=== PATIENT | male | born 1965 | race Caucasian/White ===

== ENCOUNTER 2019-08-16 16:26 | Inpatient (IN) | payer MEDICAID ==
[~2019-08-16] VITALS: Ht 175.3 cm; Wt 95.6 kg
[2019-08-16 17:08] LABS: BASOPHILS % (AUTO) 0.5 % (0.0-2.0); EOSINOPHILS % (AUTO) 2.9 % (1.0-6.0); HEMATOCRIT 30.1 % (41-53); HEMOGLOBIN 9.9 g/dL (13.5-17.5); LYMPHOCYTES # (AUTO) 1.4 K/uL (1.0-4.8); LYMPHOCYTES % (AUTO) 17.3 % (22.0-44.0); MEAN CORPUSCULAR HEMOGLOBIN 30.2 pg (26.0-34.0); MEAN CORPUSCULAR HGB CONC 32.8 G/dL (31.0-37.0); MEAN CORPUSCULAR VOLUME 92 fL (80-100); MONOCYTES # (AUTO) 0.8 K/uL (0.1-1.0); MONOCYTES % (AUTO) 10.3 % (2.0-9.0); NEUTROPHILS # (AUTO) 5.4 K/uL (1.8-7.7); PLATELET COUNT (AUTO) 150 K/uL (150-450); RED BLOOD CELL COUNT(AUTO) 3.27 MIL/uL (4.50-5.90); RED CELL DISTRIBUTION WIDTH 14.5 % (11.5-14.5)
[2019-08-16 17:17] LABS: CALCIUM, TOTAL 8.1 mg/dL (8.8-10.5); CREATININE 1.58 mg/dL (0.60-1.30); POTASSIUM 4.1 mmol/L (3.5-5.1)
[2019-08-16 17:24] LABS: ALBUMIN 3.2 g/dL (3.4-5.0); BILIRUBIN,TOTAL 0.6 mg/dL (0.1-1.0); TOTAL PROTEIN, SERUM 7.4 g/dL (6.4-8.2)
[2019-08-16 17:40] LABS: AMPHET/METH SCREEN,URINE NEGATIVE (NEGATIVE); BARBITURATE SCREEN, URINE NEGATIVE (NEGATIVE); BENZODIAZEPINES SCREEN,URINE POSITIVE (NEGATIVE); CANNABINOID SCREEN,URINE NEGATIVE (NEGATIVE); COCAINE SCREEN,URINE NEGATIVE (NEGATIVE); METHADONE SCREEN, URINE NEGATIVE (NEGATIVE); OPIATE SCREEN,URINE NEGATIVE (NEGATIVE)
[2019-08-16 17:44] LABS: PHENCYCLIDINE SCREEN,URINE NEGATIVE (NEGATIVE)
[2019-08-16] MEDS ORDERED: PROMETHAZINE HCL 25 MG TABLET PO PRN (20:15)
[2019-08-16] MEDS ORDERED: MAG HYDROX/AL HYDROX/SIMETH ES 30 ML SUSPENSION UDCUP PO PRN (20:15)
[2019-08-16] MEDS ORDERED: TUBERCULIN, PURIFIED PROTEIN DERIVATIVE 5 TU/0.1 ML SYRINGE ID ONE (20:15)
[2019-08-16] MEDS ORDERED: GuaiFENesin/D-METHORPHAN [SUGAR-FREE] 200-20MG/10 ML SYRUP UDCUP PO PRN (20:15)
[2019-08-16] MEDS ORDERED: MAGNESIUM HYDROXIDE SUSPENSION 30 ML UDCUP PO PRN (20:15)
[2019-08-16 22:00] VITALS: BP 154/95
[2019-08-16] MEDS: OLANZapine 5 MG RAPDIS TABLET PO SCH (22:00)
[2019-08-16] MEDS: THIAMINE 100 MG TABLET PO SCH (22:00)
[2019-08-16] MEDS: NALTREXONE HCL 50 MG TABLET PO SCH (22:00)
[2019-08-16] MEDS: HydrOXYzine PAMOATE 50 MG CAPSULE PO PRN (22:23)
[2019-08-16 23:02] VITALS: BP 134/80
[2019-08-17] VITALS (13 sets, daily range): BP systolic 130–180; BP diastolic 81–114
[2019-08-17] MEDS: ZOLPIDEM TARTRATE 10 MG TABLET PO PRN (00:46)
[2019-08-17] MEDS: LORazepam 2 MG TABLET PO PRN ×2 (00:46→06:08)
[2019-08-17] MEDS ORDERED: LORazepam 2 MG TABLET PO PRN (07:00)
[2019-08-17 07:36] LABS: BASOPHILS % (AUTO) 0.9 % (0.0-2.0); EOSINOPHILS % (AUTO) 5.2 % (1.0-6.0); HEMATOCRIT 33.6 % (41-53); HEMOGLOBIN 11.3 g/dL (13.5-17.5); LYMPHOCYTES # (AUTO) 1.4 K/uL (1.0-4.8); LYMPHOCYTES % (AUTO) 29.3 % (22.0-44.0); MEAN CORPUSCULAR HEMOGLOBIN 31.1 pg (26.0-34.0); MEAN CORPUSCULAR HGB CONC 33.6 G/dL (31.0-37.0); MEAN CORPUSCULAR VOLUME 93 fL (80-100); MONOCYTES # (AUTO) 0.7 K/uL (0.1-1.0); MONOCYTES % (AUTO) 14.4 % (2.0-9.0); NEUTROPHILS # (AUTO) 2.4 K/uL (1.8-7.7); NEUTROPHILS % (AUTO) 50.2 % (40.0-70.0); PLATELET COUNT (AUTO) 136 K/uL (150-450); RED BLOOD CELL COUNT(AUTO) 3.62 MIL/uL (4.50-5.90); RED CELL DISTRIBUTION WIDTH 14.7 % (11.5-14.5)
[2019-08-17 08:00] LABS: ALBUMIN 3.2 g/dL (3.4-5.0); BILIRUBIN,TOTAL 0.6 mg/dL (0.1-1.0); CALCIUM, TOTAL 8.8 mg/dL (8.8-10.5); CHOL/HDL RATIO 2.4 (4.2-7.3); CREATININE 1.8 mg/dL (0.60-1.30); FREE T4 (FREE THYROXINE) 1.03 ng/dL (0.76-1.46); POTASSIUM 4.2 mmol/L (3.5-5.1); THYROID STIMULATING HORMONE 8.67 uIU/mL (0.36-3.74); TOTAL PROTEIN, SERUM 7.4 g/dL (6.4-8.2)
[2019-08-17 08:19] LABS: HEMOGLOBIN A1C 4.2 % (3.8-5.6)
[2019-08-17] MEDS: LORazepam 2 MG TABLET PO SCH ×4 (08:33→20:54)
[2019-08-17] MEDS: FOLIC ACID 1 MG TABLET PO SCH (08:33)
[2019-08-17] MEDS: MULTIVITAMINS WITH MINERALS, THERAPEUTIC TABLET PO SCH (08:33)
[2019-08-17] MEDS: THIAMINE 100 MG TABLET PO SCH ×2 (08:33→16:16)
[2019-08-17] MEDS: OLANZapine 5 MG RAPDIS TABLET PO SCH (20:54)
[2019-08-17] MEDS: NALTREXONE HCL 50 MG TABLET PO SCH (20:54)
[2019-08-17] MEDS: LOPERAMIDE HCL 2 MG CAPSULE PO PRN (21:03)
[2019-08-18 08:30] VITALS: BP 164/94
[2019-08-18] MEDS: MULTIVITAMINS WITH MINERALS, THERAPEUTIC TABLET PO SCH (09:25)
[2019-08-18] MEDS: FOLIC ACID 1 MG TABLET PO SCH (09:25)
[2019-08-18] MEDS: THIAMINE 100 MG TABLET PO SCH ×2 (09:25→16:53)
[2019-08-18] MEDS: LORazepam 2 MG TABLET PO SCH ×4 (09:26→21:31)
[2019-08-18 11:19] VITALS: BP 164/94
[2019-08-18 19:00] VITALS: BP 153/90
[2019-08-18 21:30] VITALS: BP 151/107
[2019-08-18] MEDS: NALTREXONE HCL 50 MG TABLET PO SCH (21:30)
[2019-08-18] MEDS: OLANZapine 5 MG RAPDIS TABLET PO SCH (21:31)
[2019-08-19 00:27] VITALS: BP 162/93
[2019-08-19] MEDS ORDERED: LORazepam 1 MG TABLET PO PRN (07:00)
[2019-08-19 09:00] VITALS: BP 173/97
[2019-08-19] MEDS: LORazepam 1 MG TABLET PO SCH ×4 (09:48→20:51)
[2019-08-19] MEDS: MULTIVITAMINS WITH MINERALS, THERAPEUTIC TABLET PO SCH (09:48)
[2019-08-19] MEDS: THIAMINE 100 MG TABLET PO SCH ×2 (09:48→16:56)
[2019-08-19] MEDS: FOLIC ACID 1 MG TABLET PO SCH (09:48)
[2019-08-19 09:50] VITALS: BP 165/81
[2019-08-19 16:47] VITALS: BP 150/99
[2019-08-19 16:48] VITALS: BP 150/99
[2019-08-19] MEDS: NALTREXONE HCL 50 MG TABLET PO SCH (20:51)
[2019-08-19] MEDS: OLANZapine 10 MG RAPDIS TABLET PO SCH (20:51)
[2019-08-20] MEDS: ZOLPIDEM TARTRATE 10 MG TABLET PO PRN (02:01)
[2019-08-20 02:17] VITALS: BP 154/93
[2019-08-20 02:19] VITALS: BP 154/93
[2019-08-20] MEDS ORDERED: LORazepam 1 MG TABLET PO PRN (07:00)
[2019-08-20 08:30] VITALS: BP 152/99
[2019-08-20] MEDS: FOLIC ACID 1 MG TABLET PO SCH (09:06)
[2019-08-20] MEDS: MULTIVITAMINS WITH MINERALS, THERAPEUTIC TABLET PO SCH (09:06)
[2019-08-20] MEDS: THIAMINE 100 MG TABLET PO SCH ×2 (09:06→17:03)
[2019-08-20 10:32] VITALS: BP 152/99
[2019-08-20 16:00] VITALS: BP 162/89
[2019-08-20] MEDS: OLANZapine 10 MG RAPDIS TABLET PO SCH (20:08)
[2019-08-20] MEDS: NALTREXONE HCL 50 MG TABLET PO SCH (20:08)
[2019-08-21 06:47] VITALS: BP 155/98
[2019-08-21 08:30] VITALS: BP 147/82
[2019-08-21] MEDS: FOLIC ACID 1 MG TABLET PO SCH (09:34)
[2019-08-21] MEDS: THIAMINE 100 MG TABLET PO SCH ×2 (09:34→17:38)
[2019-08-21] MEDS: MULTIVITAMINS WITH MINERALS, THERAPEUTIC TABLET PO SCH (09:34)
[2019-08-21 13:09] VITALS: BP 147/82
[2019-08-21 18:45] VITALS: BP 141/92
[2019-08-21] MEDS: HydrOXYzine PAMOATE 50 MG CAPSULE PO PRN (18:53)
[2019-08-21] MEDS: ACETAMINOPHEN 325 MG TABLET PO PRN (18:53)
[2019-08-21] MEDS: OLANZapine 10 MG RAPDIS TABLET PO SCH (20:58)
[2019-08-21] MEDS: NALTREXONE HCL 50 MG TABLET PO SCH (20:58)
[2019-08-21 21:57] VITALS: BP 141/92
[2019-08-22] MEDS: OLANZapine 5 MG RAPDIS TABLET PO PRN (03:15)
[2019-08-22 03:44] VITALS: BP 154/94
[2019-08-22 07:00] VITALS: BP 167/107
[2019-08-22 08:30] VITALS: BP 147/111
[2019-08-22] MEDS: THIAMINE 100 MG TABLET PO SCH ×2 (08:58→17:05)
[2019-08-22] MEDS: MULTIVITAMINS WITH MINERALS, THERAPEUTIC TABLET PO SCH (08:58)
[2019-08-22] MEDS: FOLIC ACID 1 MG TABLET PO SCH (08:59)
[2019-08-22] MEDS: CloNIDine HCL 0.1 MG TABLET PO SCH ×2 (09:04→17:05)
[2019-08-22] MEDS: NALTREXONE HCL 50 MG TABLET PO SCH (21:29)
[2019-08-22] MEDS: OLANZapine 10 MG RAPDIS TABLET PO SCH (21:31)
[2019-08-22 22:13] VITALS: BP 119/91
[2019-08-23 02:11] VITALS: BP 152/87
[2019-08-23] MEDS: MULTIVITAMINS WITH MINERALS, THERAPEUTIC TABLET PO SCH (09:01)
[2019-08-23] MEDS: FOLIC ACID 1 MG TABLET PO SCH (09:01)
[2019-08-23] MEDS: CloNIDine HCL 0.1 MG TABLET PO SCH ×2 (09:01→16:36)
[2019-08-23] MEDS: THIAMINE 100 MG TABLET PO SCH ×2 (09:01→16:36)
[2019-08-23] MEDS: ACETAMINOPHEN 325 MG TABLET PO PRN (09:02)
[2019-08-23 09:24] VITALS: BP 147/92
[2019-08-23 17:12] VITALS: BP 138/92
[2019-08-23] MEDS: OLANZapine 10 MG RAPDIS TABLET PO SCH (21:13)
[2019-08-23] MEDS: NALTREXONE HCL 50 MG TABLET PO SCH (21:13)
[2019-08-23] MEDS: GABAPENTIN 300 MG CAPSULE PO SCH (21:14)
[2019-08-24] MEDS: FOLIC ACID 1 MG TABLET PO SCH (08:14)
[2019-08-24] MEDS: MULTIVITAMINS WITH MINERALS, THERAPEUTIC TABLET PO SCH (08:14)
[2019-08-24] MEDS: CloNIDine HCL 0.1 MG TABLET PO SCH ×2 (08:14→16:50)
[2019-08-24] MEDS: THIAMINE 100 MG TABLET PO SCH ×2 (08:14→16:50)
[2019-08-24] MEDS: GABAPENTIN 300 MG CAPSULE PO SCH ×3 (08:14→16:50)
[2019-08-24] MEDS ORDERED: FLUoxetine HCL 20 MG CAPSULE PO SCH (09:00)
[2019-08-24 09:26] VITALS: BP 166/99
[2019-08-24 16:00] VITALS: BP 146/88
[2019-08-24] MEDS: NALTREXONE HCL 50 MG TABLET PO SCH (20:16)
[2019-08-24] MEDS: OLANZapine 10 MG RAPDIS TABLET PO SCH (20:16)
[2019-08-24] MEDS: GABAPENTIN 400 MG CAPSULE PO SCH (20:18)
[2019-08-24] MEDS ORDERED: GuaiFENesin/D-METHORPHAN [SUGAR-FREE] 200-20MG/10 ML SYRUP UDCUP PO PRN (21:30)
[2019-08-25 02:57] VITALS: BP 159/94
[2019-08-25] MEDS: CloNIDine HCL 0.1 MG TABLET PO SCH ×2 (09:14→16:13)
[2019-08-25] MEDS: GABAPENTIN 400 MG CAPSULE PO SCH ×4 (09:14→20:08)
[2019-08-25] MEDS: FOLIC ACID 1 MG TABLET PO SCH (09:14)
[2019-08-25] MEDS: THIAMINE 100 MG TABLET PO SCH ×2 (09:14→16:13)
[2019-08-25] MEDS: MULTIVITAMINS WITH MINERALS, THERAPEUTIC TABLET PO SCH (09:14)
[2019-08-25] MEDS: FLUoxetine HCL 20 MG CAPSULE PO SCH (09:16)
[2019-08-25 09:21] VITALS: BP 149/96
[2019-08-25 16:54] VITALS: BP 151/100
[2019-08-25] MEDS: OLANZapine 10 MG RAPDIS TABLET PO SCH (20:08)
[2019-08-25] MEDS: NALTREXONE HCL 50 MG TABLET PO SCH (20:08)
[2019-08-25] MEDS: LOPERAMIDE HCL 2 MG CAPSULE PO PRN (20:56)
[2019-08-26 08:50] VITALS: BP 153/105
[2019-08-26] MEDS: FOLIC ACID 1 MG TABLET PO SCH (09:08)
[2019-08-26] MEDS: THIAMINE 100 MG TABLET PO SCH (09:08)
[2019-08-26] MEDS: GABAPENTIN 400 MG CAPSULE PO SCH ×2 (09:08→12:25)
[2019-08-26] MEDS: MULTIVITAMINS WITH MINERALS, THERAPEUTIC TABLET PO SCH (09:08)
[2019-08-26] MEDS: FLUoxetine HCL 20 MG CAPSULE PO SCH (09:09)
[2019-08-26] MEDS: CloNIDine HCL 0.1 MG TABLET PO SCH ×2 (09:09→16:12)
[2019-08-26] MEDS: GABAPENTIN 300 MG CAPSULE PO SCH ×2 (16:13→20:38)
[2019-08-26] MEDS: LOPERAMIDE HCL 2 MG CAPSULE PO PRN (16:15)
[2019-08-26 17:49] VITALS: BP 167/101
[2019-08-26] MEDS ORDERED: CloNIDine HCL 0.1 MG TABLET PO ONE (19:00)
[2019-08-26] MEDS: OLANZapine 10 MG RAPDIS TABLET PO SCH (20:38)
[2019-08-26] MEDS: NALTREXONE HCL 50 MG TABLET PO SCH (20:38)
[2019-08-26 20:45] VITALS: BP 126/83
[2019-08-27 02:13] VITALS: BP 144/87
[2019-08-27] MEDS: ACETAMINOPHEN 325 MG TABLET PO PRN ×2 (02:13→08:13)
[2019-08-27 07:45] LABS: BASOPHILS % (AUTO) 1.2 % (0.0-2.0); EOSINOPHILS % (AUTO) 6.2 % (1.0-6.0); HEMATOCRIT 31.1 % (41-53); HEMOGLOBIN 10.5 g/dL (13.5-17.5); LYMPHOCYTES # (AUTO) 1.7 K/uL (1.0-4.8); LYMPHOCYTES % (AUTO) 33.4 % (22.0-44.0); MEAN CORPUSCULAR HEMOGLOBIN 31.4 pg (26.0-34.0); MEAN CORPUSCULAR HGB CONC 33.7 G/dL (31.0-37.0); MEAN CORPUSCULAR VOLUME 93 fL (80-100); MONOCYTES # (AUTO) 0.6 K/uL (0.1-1.0); MONOCYTES % (AUTO) 11.7 % (2.0-9.0); NEUTROPHILS # (AUTO) 2.4 K/uL (1.8-7.7); NEUTROPHILS % (AUTO) 47.5 % (40.0-70.0); PLATELET COUNT (AUTO) 224 K/uL (150-450); RED BLOOD CELL COUNT(AUTO) 3.33 MIL/uL (4.50-5.90); RED CELL DISTRIBUTION WIDTH 14.3 % (11.5-14.5)
[2019-08-27] MEDS: FLUoxetine HCL 20 MG CAPSULE PO SCH (08:07)
[2019-08-27] MEDS: MULTIVITAMINS WITH MINERALS, THERAPEUTIC TABLET PO SCH (08:07)
[2019-08-27] MEDS: GABAPENTIN 300 MG CAPSULE PO SCH ×4 (08:07→20:06)
[2019-08-27] MEDS: CloNIDine HCL 0.2 MG TABLET PO SCH ×2 (08:08→16:59)
[2019-08-27] MEDS: LOPERAMIDE HCL 2 MG CAPSULE PO PRN ×2 (08:10→20:09)
[2019-08-27 08:42] VITALS: BP 161/96
[2019-08-27] MEDS ORDERED: GABA-1181 PO (12:47)
[2019-08-27] MEDS ORDERED: FLUO-191 PO (12:47)
[2019-08-27] MEDS ORDERED: NALT50TA PO (12:47)
[2019-08-27] MEDS ORDERED: OLAN10TA22 PO (12:47)
[2019-08-27 17:07] VITALS: BP 130/78
[2019-08-27] MEDS: OLANZapine 10 MG RAPDIS TABLET PO SCH (20:05)
[2019-08-27] MEDS: NALTREXONE HCL 50 MG TABLET PO SCH (20:05)
[2019-08-28] MEDS: CloNIDine HCL 0.2 MG TABLET PO SCH ×2 (08:55→16:22)
[2019-08-28] MEDS: GABAPENTIN 300 MG CAPSULE PO SCH ×4 (08:55→20:37)
[2019-08-28] MEDS: MULTIVITAMINS WITH MINERALS, THERAPEUTIC TABLET PO SCH (08:55)
[2019-08-28] MEDS: FLUoxetine HCL 20 MG CAPSULE PO SCH (08:55)
[2019-08-28 09:00] VITALS: BP 132/79
[2019-08-28 16:00] VITALS: BP 113/72
[2019-08-28] MEDS: NALTREXONE HCL 50 MG TABLET PO SCH (20:37)
[2019-08-28] MEDS: OLANZapine 10 MG RAPDIS TABLET PO SCH (20:37)
[2019-08-29 09:10] VITALS: BP 146/98
[2019-08-29] MEDS: GABAPENTIN 300 MG CAPSULE PO SCH ×4 (09:17→20:02)
[2019-08-29] MEDS: FLUoxetine HCL 20 MG CAPSULE PO SCH (09:17)
[2019-08-29] MEDS: CloNIDine HCL 0.2 MG TABLET PO SCH ×2 (09:17→16:10)
[2019-08-29] MEDS: MULTIVITAMINS WITH MINERALS, THERAPEUTIC TABLET PO SCH (09:17)
[2019-08-29 16:08] VITALS: BP 136/87
[2019-08-29] MEDS: ACETAMINOPHEN 325 MG TABLET PO PRN (16:10)
[2019-08-29] MEDS: OLANZapine 10 MG RAPDIS TABLET PO SCH (20:02)
[2019-08-29] MEDS: NALTREXONE HCL 50 MG TABLET PO SCH (20:02)
[2019-08-30] MEDS: OLANZapine 5 MG RAPDIS TABLET PO PRN (03:40)
[2019-08-30 03:42] VITALS: BP 138/83
[2019-08-30] MEDS: ACETAMINOPHEN 325 MG TABLET PO PRN ×2 (07:28→19:08)
[2019-08-30 08:28] VITALS: BP 128/79
[2019-08-30 08:34] VITALS: BP 135/75
[2019-08-30] MEDS: GABAPENTIN 300 MG CAPSULE PO SCH ×4 (09:21→20:01)
[2019-08-30] MEDS: MULTIVITAMINS WITH MINERALS, THERAPEUTIC TABLET PO SCH (09:22)
[2019-08-30] MEDS: CloNIDine HCL 0.2 MG TABLET PO SCH ×2 (09:22→17:20)
[2019-08-30] MEDS: FLUoxetine HCL 20 MG CAPSULE PO SCH (09:22)
[2019-08-30 18:22] VITALS: BP 132/82
[2019-08-30 19:08] VITALS: BP 130/80
[2019-08-30] MEDS: NALTREXONE HCL 50 MG TABLET PO SCH (20:01)
[2019-08-30] MEDS: OLANZapine 10 MG RAPDIS TABLET PO SCH (20:01)
[2019-08-31 03:00] VITALS: BP 129/70
[2019-08-31] MEDS: OLANZapine 5 MG RAPDIS TABLET PO PRN (03:16)
[2019-08-31 08:30] VITALS: BP 133/96
[2019-08-31] MEDS: GABAPENTIN 300 MG CAPSULE PO SCH ×4 (09:04→20:54)
[2019-08-31] MEDS: MULTIVITAMINS WITH MINERALS, THERAPEUTIC TABLET PO SCH (09:04)
[2019-08-31] MEDS: FLUoxetine HCL 20 MG CAPSULE PO SCH (09:04)
[2019-08-31] MEDS: CloNIDine HCL 0.2 MG TABLET PO SCH ×2 (09:05→16:28)
[2019-08-31 16:20] VITALS: BP 127/79
[2019-08-31] MEDS: ACETAMINOPHEN 325 MG TABLET PO PRN (16:29)
[2019-08-31 18:13] VITALS: BP 140/77
[2019-08-31] MEDS: NALTREXONE HCL 50 MG TABLET PO SCH (20:54)
[2019-08-31] MEDS: OLANZapine 10 MG RAPDIS TABLET PO SCH (20:55)
[2019-09-01] MEDS: LOPERAMIDE HCL 2 MG CAPSULE PO PRN (08:30)
[2019-09-01] MEDS: GABAPENTIN 300 MG CAPSULE PO SCH ×3 (08:31→16:13)
[2019-09-01] MEDS: MULTIVITAMINS WITH MINERALS, THERAPEUTIC TABLET PO SCH (08:31)
[2019-09-01] MEDS: FLUoxetine HCL 20 MG CAPSULE PO SCH (08:31)
[2019-09-01] MEDS: CloNIDine HCL 0.2 MG TABLET PO SCH ×2 (08:31→16:12)
[2019-09-01 08:34] VITALS: BP 130/99
[2019-09-01 09:14] VITALS: BP 115/76
[2019-09-01] MEDS: ACETAMINOPHEN 325 MG TABLET PO PRN ×3 (09:14→18:54)
[2019-09-01 13:15] VITALS: BP 127/80
[2019-09-01] MEDS ORDERED: CLON0.2T PO ×2 (17:45→17:46)
[2019-09-01] MEDS ORDERED: FLUO-191 PO (17:56)
[2019-09-01] MEDS: OLANZapine 5 MG RAPDIS TABLET PO PRN (18:28)
== END 2019-09-01 19:30 | disposition home or self-care (01) | DRG 885 ==
LOC: EMS 16:28 → 3EI 21:00
PROVIDERS: ADMIT Psychiatry & Neurology Psychiatry; ATTEND Psychiatry & Neurology Psychiatry
DX: F33.3 Major depressive disorder, recurrent, severe with psychotic symptoms (principal); R45.851 Suicidal ideations; F17.210 Nicotine dependence, cigarettes, uncomplicated; Z59.0 Homelessness; Z91.19 Patient's noncompliance with other medical treatment and regimen; Z91.5 Personal history of self-harm
CPT/HCPCS: 83036; 84439; 84443; 86592; 93005; 97116; 97161; 97165; 97535; G0480